=== PATIENT | male | born 1970 | race Caucasian/White ===

== ENCOUNTER 2016-08-16 10:21 | Day surgery (SDC) | payer OTHER ==
[2016-08-02 08:19] VITALS: BMI 27.0
[~2016-08-16] VITALS: Ht 175.3 cm; Wt 83.2 kg
[~2016-08-16 10:21] MED LIST: ATROPINE SULFATE 0.1 MG/ML 5ML SYR IV PRN; CLINDAMYCIN 600 MG/54 ML D5W IV SCH; EpHEDrine SULFATE INJ 50 MG/ML AMP IV PRN; LACTATED RINGER'S 1000ML 1,000 ML IV SCH; NAPR-1169 PO; ONDANSETRON INJ 2 MG/ML 2 ML VIAL IV PRN; VALA500T60 PO
[2016-08-16 11:17] VITALS: BP 115/77; PULSE 90; TEMP 36.5; O2SAT 98; Ht 175.3 cm; Wt 83.2 kg
[2016-08-16] MEDS ORDERED: FENTANYL CITRATE INJ 50 MCG/1 ML 2 ML VIAL ONE ×3 (11:41→13:46)
[2016-08-16] MEDS ORDERED: MIDAZOLAM HCL 1 MG/ML 2ML VIAL ONE (11:41)
[2016-08-16 11:55] LABS: PARTIAL THROMBOPLASTIN RATIO 1.1; PROTHROMBIN TIME (PATIENT) 11.1 SECONDS (9.0-12.0)
[2016-08-16] MEDS ORDERED: BUPIVACAINE/EPINEPHRINE 0.5% MPF 1:200,000 30 ML VIAL ONE (12:05)
[2016-08-16] MEDS ORDERED: THROMBIN 5000 UNITS KIT ONE (12:06)
[2016-08-16] MEDS ORDERED: BACITRACIN 50000 UNIT VIAL ONE (12:07)
--- NOTE | 2016-08-16 12:11 | History and Physical ---
History & Physical Date Aug 16, 2016. Chief Complaint LBP and R LE sciatica History of Present Illness The patient is a 46 year old male with complaints of above who has had severe pain since 07/04. He has been unable to work or walk more than 30 ft since onset. He reports numbness in S1 distribution. He has mild weakness in R ankle. No left leg symptoms. MRI shows R L5-S1 HNP. He denies incontinence. Past Medical/Surgical History reflux cholecystectomy lithotripsy Additional History Hepatic Disease: No Endocrine Disorder: No Kidney Disease: No Hypertension: No Heart Disease: No Bleeding Tendencies: No Infectious Diseases: No Allergies Coded Allergies: Cefuroxime (Verified Allergy, Unknown, ANAPHYLAXIS, 08/16/16) Food (Verified Allergy, Unknown, APPLES ANAPHYLAXIS, 08/16/16) Penicillins (Verified Allergy, Unknown, HIVES, 08/16/16) Sulfamethoxazole w/Trimethoprim (Verified Allergy, Unknown, RASH, 08/16/16) Home Medications Scheduled Naproxen (Naprosyn), 500 MG PO UD Scheduled PRN Valacyclovir (Valtrex), 500 MG PO UD PRN for RN Physical Examination Skin: warm/dry Eyes: normal inspection ENT: normal ENT inspection Head: normocephalic, atraumatic Neck: supple, trachea midline Respiratory/Chest: lungs clear, no respiratory distress Cardiovascular: regular rate, rhythm Back: normal inspection Neurologic/Psych: alert, normal reflexes, oriented x 3 Addiitonal Comments: 4/5 PF strength on R, numbness in S1 on right Diagnosis R L5-S1 HNP Plan of Treatment R L5-S1 microdiscectomy
[2016-08-16] MEDS ORDERED: HYDROmorphone INJ 2 MG/ML SYR/VIAL ONE ×3 (13:06→13:46)
[2016-08-16] MEDS ORDERED: LIDOCAINE HCL 2% 2 ML VIAL (20MG/ML) ONE (13:12)
[2016-08-16] MEDS ORDERED: DEXAMETHASONE SOD INJ 4 MG/ML VIAL ONE (13:12)
[2016-08-16] MEDS ORDERED: ONDANSETRON INJ 2 MG/ML 2 ML VIAL ONE ×2 (13:12→13:31)
[2016-08-16] MEDS ORDERED: ROCURONIUM BROMIDE 10 MG/ML 5 ML VIAL ONE (13:12)
[2016-08-16] MEDS ORDERED: PROPOFOL IV EMULSION 10 MG/ML 20 ML VIAL IV ONE (13:12)
[2016-08-16] MEDS ORDERED: ESMOLOL HCL 10 MG/ML 10 ML VIAL ONE (13:12)
[2016-08-16] MEDS ORDERED: NEOSTIGMINE METHYLSULFATE 1 MG/ML 10ML VIAL ONE (13:31)
[2016-08-16] MEDS ORDERED: GLYCOPYRROLATE INJ 0.2 MG/ML VIAL ONE (13:31)
[2016-08-16] MEDS ORDERED: FLOSEAL HEMOSTATIC MATRIX 5ML TOP ONE (13:31)
[2016-08-16] MEDS ORDERED: KETOROLAC TROMETHAMINE 30 MG/ML VIAL ONE (13:31)
[2016-08-16] MEDS ORDERED: OXYCODONE/ACETAMINOPHEN 5-325 TAB PO PRN ×2 (13:45)
[2016-08-16] MEDS ORDERED: ONDANSETRON INJ 2 MG/ML 2 ML VIAL IV PRN (13:45)
[2016-08-16] MEDS ORDERED: SODIUM CHLORIDE 0.9% 1000ML 1,000 ML IV SCH (13:45)
[2016-08-16] MEDS ORDERED: MoRPHine SULFATE 4 MG/ML 1 ML CARP\\VIAL IV PRN (13:45)
--- NOTE | 2016-08-16 13:45 | [facility] Post Operative Brief Note ---
Immediate Operative Summary Operative Date Aug 16, 2016. Pre-Operative Diagnosis L5 - S1 Herniated Nucleus Polposus Post-Operative Diagnosis L5 - S1 Herniated Nucleus Polposus Procedure(s) Performed Right L5-S1 Microdiscectomy Surgeon Dr. Fly Fierro Epic Analyst Surgeon(s) none Estimated Blood Loss 30ML Findings dict Specimens none per surgeon Dr. Fly Fierro
--- NOTE | 2016-08-16 13:48 | Discharge Instructions ---
Discharge Instructions Date of Service Aug 16, 2016. Admission Reason for Admission: Herniated Nucleus Pulposus Discharge Discharge Diagnosis / Problem: same Discharge Goals Goal(s): Decrease discomfort Activity Recommendations Activity Limitations: per Instructions/Follow-up section . Current Hospital Diet Patient's current hospital diet: Discharge Diet Recommended Diet: Regular Diet Procedures Procedures Performed: Right L5-S1 Microdiscectomy Pending Studies Studies pending at discharge: no Medical Emergencies . Who to Call and When: Medical Emergencies: If at any time you feel your situation is an emergency, please call 911 immediately. . Non-Emergent Contact Non-Emergency issues call your: Surgeon . "Provider Documentation" section prepared by Fly Fierro. VTE Core Measure Inpt VTE Proph given/why not?: SCD's
[2016-08-16] MEDS: FENTANYL CITRATE INJ 50 MCG/1 ML 2 ML VIAL IV PRN ×4 (13:50→14:05)
--- NOTE | 2016-08-16 13:51 | DIAGNOSTIC IMAGING REPORT ---
LUMBAR SPINE, INTRAOPERATIVE FLUOROSCOPY HISTORY: Laminectomy. FLUOROSCOPY TIME: 6 seconds. FINDINGS: Intraoperative fluoroscopy was provided for the L5-S1. 2 fluoroscopic spot images were obtained. IMPRESSION: Fluoroscopy provided for a low lumbar microdiscectomy. Electronically signed by: Harish River M.D. 08/16/2016 1:50 PM Dictated Date/Time: 08/16/2016 1:49 PM
--- NOTE | 2016-08-16 13:58 | Discharge Instructions ---
Discharge Instructions Date of Service Aug 16, 2016. Admission Reason for Admission: Herniated Nucleus Pulposus Discharge Discharge Diagnosis / Problem: same Discharge Goals Goal(s): Decrease discomfort Activity Recommendations Activity Limitations: per Instructions/Follow-up section . Instructions / Follow-Up Instructions / Follow-Up ACTIVITY RECOMMENDATIONS: SELF CARE INSTRUCTIONS AFTER A LAMINECTOMY 1. No prolonged sitting (less than 30 minutes for the first 3 weeks after surgery). 2. No bending, lifting more than 5 pounds, or twisting (roll like a log when turning in bed). 3. You may shower 3 days after surgery if no drainage from wound. Thoroughly dry wound. Do not soak in the tub. 4. Please walk as much as you can for exercise. Gradually increase the distance that you walk as your endurance increases. 5. You may drive in 7-10 days if you are comfortable and no longer requiring pain medications. SPECIAL CARE INSTRUCTIONS: VERY IMPORTANT TO READ AND REVIEW A. Your surgical incision has been closed with a cosmetic suture under the skin that will dissolve in about 6 weeks. In 14 days, you can use a pair of clean scissors and cut the suture that is left outside of the skin at the ends of your incision. B. Complications are uncommon, but please contact us if you have any signs or symptoms of: 1. wound infection (fever higher than 102.5 degrees F, redness, separation of wound, drainage, or increasing pain from the incision) 2. blood clots in legs (pain, swelling, redness and warmth in legs) 3. urinary tract infection (fever higher than 102.5 degrees, burning upon urination or increased frequency of urination) 4. nerve problems (inability to walk on your toes or heels, numbness, loss of bowel or bladder control) 5. any other symptoms that concern you. C. Please call the office at if you have any concerns or questions about your operation or recovery. MANAGING PAIN AFTER SPINAL SURGERY 1. Narcotic medication is intended for short-term use and will be provided for surgical pain. Surgical pain usually lasts for a period of 4-6 weeks. Narcotic medication includes Percocet, Vicodin, Darvocet, Tylenol #3 or Lortab. 2. Longer-term pain is more appropriately treated with non-narcotic medication such as Tylenol ES. 3. Muscle spasm is not appropriately treated with narcotics. Muscle relaxers such as Soma, Flexeril or Skelaxin can be used along with Tylenol ES. 4. Remember that we all live with some "aches and pains". This is not unusual or uncommon after an injury or as we get older. 5. We will provide appropriate medication within the normal guidelines of their prescribed use. We will also be very cautious and aware of potential abuse and extended duration of patients' medication needs. 6. Please allow 2-3 days to process refills. Prescriptions will not be mailed but must be picked up at the office. FOLLOW UP VISIT: Keep your scheduled follow-up appointment. Any questions, please call the office at . Current Hospital Diet Patient's current hospital diet: Discharge Diet Recommended Diet: Regular Diet Procedures Procedures Performed: Right L5-S1 Microdiscectomy Pending Studies Studies pending at discharge: no Medical Emergencies . Who to Call and When: Medical Emergencies: If at any time you feel your situation is an emergency, please call 911 immediately. . Non-Emergent Contact Non-Emergency issues call your: Surgeon . "Provider Documentation" section prepared by Fly Fierro. VTE Core Measure Inpt VTE Proph given/why not?: SCD's
[2016-08-16] MEDS: HYDROmorphone INJ 1 MG/ML SYR IV PRN ×4 (14:10→14:25)
--- NOTE | 2016-08-16 14:41 | Anesthesiology Progress Note ---
Anesthesia Post Op Note Date & Time Aug 16, 2016 at 14:41 Vital Signs Pain Intensity: 3 Vital Signs Past 12 Hours Date Time Temp Pulse Resp B/P Pulse Ox O2 Delivery O2 Flow Rate FiO2 08/16/16 14:25 81 16 106/70 96 Room Air 08/16/16 14:15 77 16 112/69 96 Room Air 08/16/16 14:05 67 16 104/73 100 Mask 10 08/16/16 13:55 72 16 106/76 99 Mask 10 08/16/16 13:48 36 80 16 107/79 99 Mask 10 08/16/16 11:17 36.5 90 18 115/77 98 Room Air Notes Mental Status: alert / awake / arousable, participated in evaluation Pt Amnestic to Procedure: Yes Nausea / Vomiting: adequately controlled Pain: adequately controlled Airway Patency, RR, SpO2: stable & adequate BP & HR: stable & adequate Hydration State: stable & adequate Anesthetic Complications: no major complications apparent
[2016-08-16 14:48] VITALS: BP 103/52; PULSE 96; TEMP 36.5; O2SAT 92
[2016-08-16 15:15] VITALS: BP 99/64; PULSE 75; O2SAT 97
[2016-08-16 16:15] VITALS: BP 117/72; PULSE 90; TEMP 36.6; O2SAT 95
--- NOTE | 2016-08-21 17:25 | OPERATIVE REPORT ---
DATE OF OPERATION: 08/16/2016 PREOPERATIVE DIAGNOSIS: Right L5-S1 herniated nucleus pulposus. POSTOPERATIVE DIAGNOSIS: Same. PROCEDURES: Right L5-S1 microdiscectomy. SURGEON: Dr. Fierro. ANESTHESIA: General endotracheal anesthesia. COMPLICATIONS: None. ESTIMATED BLOOD LOSS: Minimal. DESCRIPTION OF PROCEDURE: After identification of patient and operative level, he was brought to the OR where he underwent induction of general anesthesia. He was then positioned prone on Navin OR table. All bony prominences were well padded. Care was taken to avoid pressure on the periorbital area. Lumbosacral area was sterilely prepped and draped in usual fashion. Antibiotics were administered. Time-out was performed. Level was confirmed and skin incision was localized with lateral fluoroscopy and a spinal needle. I infiltrated skin with 0.5% Marcaine with epinephrine, made skin incision over the spinous process of L5 and S1 and exposed the right L5-S1 interlaminar window with application of a black oxide coating equipment tender retractor. I then confirmed level with fluoroscopy and a marker at the lamina of L5. I then created a small laminotomy and took down the ligamentum flavum and identified the traversing nerve root. This was mobilized and protected and subsequently discectomy was performed with complete discectomy performed at the paracentral location. A great deal of disc material distending the nerve root and nerve root was swollen and red. With gentle manipulation, I was able to remove multiple large disc fragments that were markedly displacing the nerve root. Following removal of these fragments, nerve root appeared significantly decompressed and returned to normal course along the pedicle. I confirmed that there were no further free disc fragments and I removed any loose disc fragments deep to the annulus, reconfirmed level with a marker, next the S1 pedicle and then irrigated with bacitracin solution, applied FloSeal and closed in layered fashion. All sponge and needle counts were correct at the end of the case. I attest to the content of the Intraoperative Record and any orders documented therein. Any exceptio ns are noted below.
== END 2016-08-16 17:00 | disposition home or self-care (01) ==
LOC: C.ACU 10:21
PROVIDERS: ATTEND Orthopaedic Surgery Orthopaedic Surgery of the Spine
DX: M51.27 Other intervertebral disc displacement, lumbosacral region (principal); K21.9 Gastro-esophageal reflux disease without esophagitis; Z88.0 Allergy status to penicillin; Z88.2 Allergy status to sulfonamides